=== PATIENT | female | born 1955 | race Two or more races ===

== ENCOUNTER 2017-01-22 06:33 | Day surgery (SDC) | payer BC ==
--- NOTE | 2017-01-02 14:01 | HP ---
PREOPERATIVE HISTORY AND PHYSICAL: DATE OF SURGERY/ADMISSION: 01/22/2017 - [facility] DATE OF OFFICE VISIT/ENCOUNTER: 01/02/2017. ATTENDING SURGEON: Anna Baird MD. (DICTATED BY RODRICK JIMENEZ) PROCEDURE: Left wrist De Quervain release. CHIEF COMPLAINT: Left wrist pain. HISTORY OF PRESENT ILLNESS: This is a 61-year-old female who has had ongoing left wrist pain secondary to de Quervain tenosynovitis since September 2015. She has failed conservative treatment including bracing, ice, NSAIDs, and a cortisone injection. She is interested in pursuing surgical intervention at this time for this problem. PAST MEDICAL HISTORY: 1. Diabetes. 2. Hypercholesterolemia. 3. Hypertension. 4. GERD. PAST SURGICAL HISTORY: 1. Appendectomy. 2. Cholecystectomy. 3. Hysterectomy. 4. D and C. 5. Right shoulder surgery. 6. Left shoulder surgery. 7. Varicose vein stripping. CURRENT MEDICATIONS: 1. Advil 200 mg 1 tab p.r.n. 2. Calcium 600 plus vitamin D 1 tab b.i.d. 3. Equate. 4. Joint Soother once a day. 5. Klor-Con 8 mEq 2 tabs daily. 6. Lisinopril/hydrochlorothiazide 20/25 mg daily. 7. Metformin HCl 500 mg daily. 8. Multivitamin daily. 9. Naproxen sodium 220 mg p.r.n. 10. [place] 3 and omega 6 fish oil 13/60 mg 1 tab daily. 11. Pravastatin sodium 20 mg daily. 12. Tolterodine tartrate ER 4 mg daily. 13. Tylenol 8 hour 650 mg one tab t.i.d. p.r.n. 14. Vitamin C 1000 mg daily. 15. Zyrtec allergy 10 mg daily p.r.n. ALLERGIES: 1. PENICILLIN causes hives. 2. CEFPROZIL. 3. CEFUROXIME. 4. CEPHALEXIN. 5. CODEINE. 6. DARVOCET. 7. DEMEROL. 8. HYDROCODONE, #2 through #8 causing nausea. FAMILY MEDICAL HISTORY: Cardiac disease and stroke. SOCIAL HISTORY: The patient is disabled. She denies tobacco use and recreational drug use and alcohol use. REVIEW OF SYSTEMS: General: Negative for fevers, chills, or night sweats. No known anesthesia problems. HEENT: Negative for headache, lightheadedness, or syncopal episodes. Integumentary: Negative for abrasions, lesions, or open wounds. Cardiothoracic: Positive for hypertension. Negative for chest pain, palpitations, or edema. Pulmonary: Negative for shortness of breath with exertion, chronic cough, COPD. GI: Negative for nausea, vomiting, diarrhea, constipation, or GERD. : Negative for nocturia, urinary frequency, urgency, history of UTIs, or kidney problems. Musculoskeletal: Positive for current complaint. Negative for chronic or intermittent back pain. Neurological: Negative for paresthesias, numbness, or history of seizure, stroke, or epilepsy. Endocrine: Positive for diabetes. Negative for thyroid issues. Hematologic: Negative for easy bruising, anemia, excessive bleeding, or history of DVT. Infectious Disease: Negative for history of MRSA, hepatitis C , or HIV. PHYSICAL EXAMINATION GENERAL: Well-developed, well nourished, 61-year-old female in no acute distress. VITAL SIGNS: Height 5 feet 3-1/2 inches, weight 169 pounds, blood pressure 120/ 82, pulse rate 80. HEENT: Normocephalic, atraumatic. Pupils are equal, round, and reactive to light and accommodation. Extraocular movements are intact. NECK: Supple. No palpable lymph nodes. Throat is clear. CARDIOVASCULAR: Regular rate and rhythm. S1 and S2. No murmurs, rubs, or gallops. No edema. PULMONARY: Lungs are clear to auscultation bilaterally. No wheezes, rales, or rhonchi. ABDOMEN: Positive bowel sounds, soft, nontender. MUSCULOSKELETAL: On exam of her left wrist, there is no visible slowing. She has tenderness to palpation at the first dorsal compartment, increased pain with some abduction and radial deviation actively, positive Rola's test. Neurovascular function is intact. NEUROLOGICAL: Alert and oriented x3. Cranial nerves II through X11 were intact. Sensation is intact to light touch. Peripheral vascular 2+ radial and ulnar pulses. Negative Alfie test. SKIN: Intact. IMPRESSION: Left wrist de Quervain tenosynovitis. PLAN: The patient is scheduled to undergo a left wrist de Quervain release with Dr. Baird on 01/22/17. She will return to the office 10 to 14 days postop for followup and suture removal. A prescription for Ultracet was e-scribed to the patient's pharmacy for postoperative pain management. RODRICK JIMENEZ [id number]/[facility] #: [id number] MOE
[~2017-01-22 06:33] MED LIST: Buffered Lidocaine 0.9% SYRIN* 5 ML/SYR SYRINGE INTRADERM ONE; Famotidine IV* 10 MG/ML 2 ML (20 mg) IV ONE
[2017-01-22] MEDS ORDERED: Famotidine IV* 10 MG/ML 2 ML (20 mg) ONE (06:34)
[2017-01-22] MEDS ORDERED: Buffered Lidocaine 0.9% SYRIN* 5 ML/SYR SYRINGE ONE (06:35)
[2017-01-22] MEDS ORDERED: Lidocaine 1% INJ* 10 MG/ML 30 ML SDV ONE (07:24)
[2017-01-22] MEDS ORDERED: DiMENhydriNATE IV* 50 MG/ML VIAL IV PUSH PRN (07:30)
[2017-01-22] MEDS ORDERED: Midazolam* 1 MG/ML 5 ML VIAL (5 MG) ONE (07:41)
[2017-01-22] MEDS ORDERED: fentaNYL* 50 MCG/ML 2 ML VIAL (100 MCG VIAL) ONE (07:41)
[2017-01-22] MEDS ORDERED: Ketorolac INJ* 30 MG/ML 1 ML VIAL ONE (07:43)
[2017-01-22] MEDS ORDERED: Ondansetron INJ* 2 MG/ML VIAL ONE (07:43)
[2017-01-22] MEDS ORDERED: Propofol* 10 MG/ML 20 ML BTL IV PUSH ONE (07:43)
[2017-01-22] MEDS ORDERED: Lidocaine 2% PF * 5 ML VIAL ONE (07:43)
[2017-01-22 09:25] VITALS: BP 141/75
--- NOTE | 2017-01-23 03:44 | OP ---
DATE OF OPERATION: 01/22/17 [facility] DATE OF : 51 SURGEON: Anna Baird MD EMPLOYMENT OFFICER: RODRICK Pandey ANESTHESIOLOGIST: Ioana Escobar MD ANESTHESIA: Local MAC. PRE-OP DIAGNOSIS: De Quervain's tenosynovitis, left side. POST-OP DIAGNOSIS: De Quervain's tenosynovitis, left side. OPERATIVE PROCEDURE: De Quervain's release, left side. ESTIMATED BLOOD LOSS: Zero. TOURNIQUET TIME: About 10 minutes. INDICATIONS FOR PROCEDURE: Shavon is a 61-year-old female with pain in the radial aspect of her left wrist. She has de Quervain's tenosynovitis. She has failed conservative treatment. She presents for de Quervain's release. DESCRIPTION OF PROCEDURE: The patient was brought to the operating room, was given a sedation anesthetic and a local infiltration with 10 cc of 1% plain lidocaine in the radial aspect of her left wrist. Skin of the left hand and forearm was prepped and draped in the usual sterile fashion. The hand and forearm were exsanguinated and the tourniquet elevated to 250 mmHg. A longitudinal incision was made centered at the tip of the radial styloid, we dissected bluntly through the subcutaneous tissue. Branches of the radial sensory nerve were located and were protected by the driller's assistant Alida Schrader; this was an essential portion of the surgery. The first dorsal compartment was then incised longitudinally. The APL and EPB tendons were in different compartments, they were both released completely. The wound was irrigated and the skin edges reapproximated with 4-0 nylon suture. The wound was dressed with Xeroform, 4x4, Webril and an Cl wrap. The patient tolerated the procedure well and was brought to the recovery room in good condition. [id number]/[facility] #: [id number] [facility]y
== END 2017-01-22 09:16 | disposition home or self-care (01) ==
LOC: OREAST 06:33
PROVIDERS: ATTEND Orthopaedic Surgery
PROC: 0L870ZZ Division of Right Hand Tendon, Open Approach (ICD-10-PCS; principal; 2017-01-22 07:45)
DX: M65.4 Radial styloid tenosynovitis [de Quervain] (principal)
CPT/HCPCS: J1885; J2001; J2250; J2405; J2704; J3010